=== PATIENT | male | born 1960 | race Caucasian/White ===

== ENCOUNTER 2016-03-31 08:50 | Outpatient (CLI) | payer OTHER ==
[2016-03-31] MEDS ORDERED: DIATR MEGLU/DIATRIZ SOD 30 ML SOLUTION PO ONE (09:17)
[2016-03-31] MEDS ORDERED: IOHEXOL 100 ML IV ONE (09:17)
== END 2016-03-31 19:03 | disposition home or self-care (01) ==
LOC: SNM 08:50
PROVIDERS: ATTEND Urology Pediatric Urology
DX: C61 Malignant neoplasm of prostate (principal); N40.0 Benign prostatic hyperplasia without lower urinary tract symptoms
CPT/HCPCS: 74177; 78306; A9503; Q9964; Q9967